=== PATIENT | female | born 1955 | race Caucasian/White ===

== ENCOUNTER → 2020-12-05 | Outpatient (CLI) | payer BC, OTHER ==
[~2020-12-05] MED LIST: ALEN70TA82 PO; NEXI40GR PO; PROB250C PO
== END ==
LOC: M LABSMTC 10:39
PROVIDERS: ATTEND Anesthesiology
DX: Z01.818 Encounter for other preprocedural examination (principal); Z11.52 Encounter for screening for COVID-19